=== PATIENT | female | born 1965 | race Two or more races ===

== ENCOUNTER 2023-10-01 08:43 | Outpatient (CLI) | payer OTHER | END 2023-10-01 08:56 | disposition home or self-care (01) | LOC: TOM 08:43 | PROVIDERS: ATTEND Surgery | DX: K57.30 Diverticulosis of large intestine without perforation or abscess without bleeding (principal); R19.4 Change in bowel habit; R93.5 Abnormal findings on diagnostic imaging of other abdominal regions, including retroperitoneum; K56.5 Intestinal adhesions [bands] with obstruction (postinfection) ==